=== PATIENT | female | born 1995 | race Caucasian/White ===

== ENCOUNTER 2018-09-09 10:18 | Inpatient (IN) | payer OTHER, BC, MEDICAID ==
[2018-09-09] MEDS: FAMOTIDINE 20 MG INJ IV (12:05)
[2018-09-09] MEDS: SOD CHLORIDE 0.9% 500 ML IV (12:05)
[2018-09-09] MEDS: ONDANSETRON 4 MG INJ IV (12:05)
[2018-09-09 12:22] LABS: ABNORMAL IP MESSAGE 1; HEMATOCRIT 41.5 % (37.0-47.0); HEMOGLOBIN 13.9 g/dl (12.0-16.0); MEAN CORPUSCULAR HGB CONC 33.5 g/dl (32.0-37.0); MEAN CORPUSCULAR VOLUME 80.6 fl (82.0-101.0); MEAN PLATELET VOLUME 9.7 fl (7.4-10.4); PLATELET COUNT 348 10^3/UL (140-415); POSITIVE DIFF @See below; RED BLOOD COUNT 5.15 10^6/ul (4.20-5.40); RED CELL DISTRIBUTION WIDTH 12.5 % (11.5-14.5)
[2018-09-09 12:22] LABS: WHITE BLOOD COUNT 27.5 10^3/ul (4.8-10.8)
[2018-09-09 12:23] LABS: ADD MAN DIFF? YES
[2018-09-09 12:33] LABS: ADD UMIC YES; UR ASCORBIC ACID NEGATIVE (NEGATIVE); UR BACTERIA FEW /HPF (NONE SEEN); UR BILIRUBIN (Dip) NEGATIVE (NEGATIVE); UR BLOOD (Dip) 3+ mg/dL (NEGATIVE); UR CLARITY SLIGHTLY CLOUDY (CLEAR); UR COLOR YELLOW (YELLOW); UR GLUCOSE (Dip) NEGATIVE (NEGATIVE); UR KETONES (Dip) 1+ mg/dL (NEGATIVE); UR LEUKOCYTE ESTERASE (Dip) 1+ Leu/ul (NEGATIVE); UR MUCUS FEW /HPF (NONE SEEN); UR NITRITE (Dip) NEGATIVE (NEGATIVE); UR RBC 110 /HPF (0-5); UR SPECIFIC GRAVITY (Dip) 1.013 (1.003-1.030); UR SQUAMOUS EPITHELIAL CELL FEW /HPF (FEW); UR TOTAL PROTEIN (Dip) NEGATIVE (NEGATIVE); UR UROBILINOGEN (Dip) NEGATIVE (NEGATIVE); UR WBC 8 /HPF (0-5)
[2018-09-09 12:44] LABS: ALANINE AMINOTRANSFERASE 10 IU/L (13-69); ALBUMIN 4.8 g/dl (3.3-4.9); ALBUMIN/GLOBULIN RATIO 1.26; ALKALINE PHOSPHATASE 85 IU/L (42-121); ANION GAP 14 (5-13); ASPARTATE AMINO TRANSFERASE 23 IU/L (15-46); BILIRUBIN,INDIRECT 1.5 mg/dl (0-1.1); BILIRUBIN,TOTAL 1.5 mg/dl (0.2-1.3); BLOOD UREA NITROGEN 4 mg/dl (7-20); CALCIUM 9.8 mg/dl (8.4-10.2); CARBON DIOXIDE 28 mmol/L (21-31); CHLORIDE 97 mmol/L (97-110); CREATININE 0.39 mg/dl (0.44-1.00); Estimated GFR > 60 mL/min (>60); GLUCOSE 131 mg/dl (70-220); LIPASE 34 U/L (23-300); POTASSIUM 3.9 mmol/L (3.5-5.1); SODIUM 139 mmol/L (135-144); TOTAL PROTEIN 8.6 g/dl (6.1-8.1)
[2018-09-09 12:48] LABS: ANISOCYTOSIS 2+ (0-0); LYMPHOCYTES #M 1.6 10^3/ul (0.8-2.9); LYMPHOCYTES % (M) 6 % (15-51); MICROCYTOSIS 2+ (0-0); MONOCYTE #M 1.9 10^3/ul (0.3-0.9); MONOCYTES % (M) 7 % (0-11); PLATELET ESTIMATE NORMAL; RBC MORPHOLOGY COMMENT @See below; SEGMENTED NEUTROPHILS (M) % 87 % (39-77); SMUDGE%M 6 % (0-0); WBC MORPHOLOGY COMMENT @See below
[2018-09-09] MEDS ORDERED: MAGNESIUM HYDROXIDE 30ML CUP PO (13:30)
[2018-09-09] MEDS ORDERED: LORAZEPAM 2 MG INJ IV (13:30)
[2018-09-09] MEDS ORDERED: ACETAMINOPHEN 325 MG TAB PO ×3 (13:30→16:00)
[2018-09-09] MEDS ORDERED: morphine 2 MG INJ IV (13:30)
[2018-09-09] MEDS ORDERED: ALBUTEROL/IPRATROPIUM (NEB) 3 ML AMP HHN (13:30)
[2018-09-09] MEDS ORDERED: ONDANSETRON 4 MG INJ IV ×4 (13:30→16:00)
[2018-09-09] MEDS ORDERED: NACL 0.9% 3 ML SYG IV (13:30)
[2018-09-09] MEDS ORDERED: DOCUSATE SODIUM 100 MG CAP PO (13:30)
[2018-09-09] MEDS ORDERED: hydrALAzine 20 MG INJ IV ×2 (13:30→15:00)
[2018-09-09] MEDS ORDERED: NITROGLYCERIN (SL) 0.4 MG TAB SL (13:30)
[2018-09-09 14:13] LABS: LACTIC ACID 2.1 mmol/L (0.5-2.0)
[2018-09-09 14:14] LABS: INR 1.19; PROTIME 15.2 Sec (11.9-14.9); PT RATIO 1.2
[2018-09-09 14:15] LABS: PARTIAL THROMBOPLASTIN TIME 28.6 Sec (23.0-35.0)
[2018-09-09 14:27] LABS: FREE T4 (FREE THYROXINE) 1.12 ng/dl (0.79-2.35)
[2018-09-09] MEDS: AMPICILLIN/SULB 3 GM/NS (PMX) 100 ML IVPB (14:27)
[2018-09-09] MEDS ORDERED: BUPIVACAINE 0.5%/EPI (SDV) 30 ML INJ (14:35)
[2018-09-09] MEDS ORDERED: PROPOFOL 20 ML (14:53)
[2018-09-09] MEDS ORDERED: NEOSTIGMINE 3 MG/3 ML SYRINGE (14:53)
[2018-09-09] MEDS ORDERED: FENTAnyl 50 MCG/ML VIAL ×2 (14:53→15:27)
[2018-09-09] MEDS ORDERED: ROCURONIUM 50 MG INJ (14:53)
[2018-09-09] MEDS ORDERED: CEFAZOLIN 1 GM INJ (14:53)
[2018-09-09] MEDS ORDERED: GLYCOPYRROLATE 0.4 MG INJ (14:53)
[2018-09-09] MEDS ORDERED: ONDANSETRON 4 MG INJ (14:53)
[2018-09-09] MEDS ORDERED: MIDAZOLAM 1 MG/ML 2 ML INJ (14:53)
[2018-09-09] MEDS ORDERED: DEXAMETHASONE 4 MG/ML 5 ML INJ (14:54)
[2018-09-09] MEDS ORDERED: ROPIVACAINE 0.5 % 30 ML VIAL (14:56)
[2018-09-09] MEDS ORDERED: EPHEDrine SULFATE 50 MG/5 ML SYG IV (15:00)
[2018-09-09] MEDS ORDERED: HYDROmorphONE 1 MG/5 ML IV SYRINGE IV ×3 (15:00)
[2018-09-09] MEDS ORDERED: LABETALOL HCL 20MG INJ IV (15:00)
[2018-09-09] MEDS ORDERED: DIPHENHYDRAMINE 50 MG INJ IV (15:00)
[2018-09-09] MEDS ORDERED: MEPERIDINE 25 MG INJ IV (15:00)
[2018-09-09] MEDS ORDERED: IPRATROPIUM (NEB) 0.5 MG/2.5 ML AMP HHN (15:00)
[2018-09-09] MEDS ORDERED: ALBUTEROL 0.083% (NEB) 2.5 MG/3 ML AMP HHN (15:00)
[2018-09-09] MEDS ORDERED: FENTAnyl 50 MCG/ML VIAL IV ×3 (15:00)
[2018-09-09] MEDS ORDERED: TRIMETHOBENZAMIDE 100 MG/ML VIAL IM (15:00)
[2018-09-09] MEDS ORDERED: OXYCODONE/ACETAMINOPHEN (5/325) TAB PO ×2 (15:00)
[2018-09-09] MEDS ORDERED: MIDAZOLAM 1 MG/ML 2 ML INJ IV (15:00)
[2018-09-09] MEDS ORDERED: METOCLOPRAMIDE 10 MG INJ (15:43)
[2018-09-09] MEDS ORDERED: KETOROLAC 30 MG INJ (15:43)
[2018-09-09] MEDS: D5W-0.45 NACL + KCL 20 MEQ 1,000 ML IV (15:53)
[2018-09-09] MEDS ORDERED: HYDROCODONE/APAP (5/325) TAB PO (16:00)
[2018-09-09] MEDS ORDERED: HYDROmorphONE 0.5 MG/0.5 ML SYG IV (16:00)
[2018-09-09] MEDS ORDERED: DIPHENHYDRAMINE 25 MG CAP PO (16:00)
[2018-09-09] MEDS ORDERED: METOCLOPRAMIDE 10 MG INJ IV (16:00)
[2018-09-09] MEDS ORDERED: IBUPROFEN 600 MG TAB PO (16:00)
[2018-09-09] MEDS: SOD CHLORIDE 0.9% 1,000 ML IV ×2 (16:11→23:28)
[2018-09-09] MEDS: PIPER-TAZO 3.375 GM IV (PMX) 100 ML IVPB (19:23)
[2018-09-09] MEDS: HEPARIN 5,000 UNIT/1 ML VIAL SC (21:32)
[2018-09-09] MEDS: HYDROCODONE/APAP (5/325) TAB PO (23:40)
[2018-09-10] MEDS: D5W-0.45 NACL + KCL 20 MEQ 1,000 ML IV ×2 (03:02→11:53)
[2018-09-10] MEDS: PIPER-TAZO 3.375 GM IV (PMX) 100 ML IVPB ×3 (03:02→11:31)
[2018-09-10 05:04] LABS: ADD MAN DIFF? NO
[2018-09-10 05:13] LABS: WHITE BLOOD COUNT 24.5 10^3/ul (4.8-10.8)
[2018-09-10 05:13] LABS: ABNORMAL IP MESSAGE 1; BASOPHILS % 0.1 % (0.0-2.0); HEMATOCRIT 34.6 % (37.0-47.0); HEMOGLOBIN 11.4 g/dl (12.0-16.0); MEAN CORPUSCULAR HEMOGLOBIN 26.8 pg (29.0-33.0); MEAN CORPUSCULAR HGB CONC 32.9 g/dl (32.0-37.0); MEAN CORPUSCULAR VOLUME 81.4 fl (82.0-101.0); MEAN PLATELET VOLUME 10.3 fl (7.4-10.4); MONOCYTE # 1.2 10^3/ul (0.3-0.9); MONOCYTES % 4.9 % (0.0-11.0); NEUTROPHIL # 22.1 10^3/ul (1.6-7.5); NEUTROPHILS % 90.1 % (39.0-77.0); PLATELET COUNT 259 10^3/UL (140-415); RED BLOOD COUNT 4.25 10^6/ul (4.20-5.40)
[2018-09-10 05:20] LABS: POSITIVE DIFF @See below
[2018-09-10 05:21] LABS: HEMOGLOBIN A1C 5.1 % (0-5.9)
[2018-09-10 05:26] LABS: ANION GAP 8 (5-13); BLOOD UREA NITROGEN 7 mg/dl (7-20); CALCIUM 9.4 mg/dl (8.4-10.2); CARBON DIOXIDE 26 mmol/L (21-31); CHLORIDE 107 mmol/L (97-110); CREATININE 0.41 mg/dl (0.44-1.00); Estimated GFR > 60 mL/min (>60); GLUCOSE 121 mg/dl (70-220); MAGNESIUM 2.1 mg/dl (1.7-2.5); PHOSPHORUS 3.5 mg/dl (2.5-4.9); POTASSIUM 3.4 mmol/L (3.5-5.1); SODIUM 141 mmol/L (135-144)
[2018-09-10 07:20] LABS: CHOL/HDL RATIO 1.9 RATIO; HDL CHOLESTEROL 65 mg/dl (33-83); LDL CHOLESTEROL,CALCULATED 51 mg/dl; TRIGLYCERIDES 49 mg/dl (0-149)
[2018-09-10 07:20] LABS: CHOLESTEROL 126 mg/dl (100-200)
[2018-09-10] MEDS: HEPARIN 5,000 UNIT/1 ML VIAL SC (09:00)
[2018-09-10] MEDS: SOD CHLORIDE 0.9% 1,000 ML IV (09:28)
[2018-09-10] MEDS: KETOROLAC 15 MG INJ IV (09:58)
[2018-09-10] MEDS: POTASSIUM CHLORIDE (SR) 20 MEQ TAB PO (11:31)
[2018-09-10 15:31] LABS: THYROID STIMULATING HORMONE 0.272 MIU/L (0.465-4.680)
== END 2018-09-10 14:18 | disposition home or self-care (01) | DRG 343 ==
LOC: FTE 10:18 → REC 13:31 → MS1 17:05
PROC: 0DTJ4ZZ Resection of Appendix, Percutaneous Endoscopic Approach (ICD-10-PCS; principal; 2018-09-09 15:08)
DX: K35.80 Unspecified acute appendicitis (principal)
CPT/HCPCS: 74176; 80048; 80053; 80061; 81001; 81025; 83036; 83605; 83690; 83735; 84100; 84439; 84443; 85025; 85610; 85730; 88304